=== PATIENT | male | born 1955 | race Caucasian/White ===

== ENCOUNTER 2022-03-26 15:37 | Inpatient (IN) | payer OTHER, MEDICAID ==
[~2022-03-26] VITALS: Ht 170.2 cm; Wt 66.2 kg
[2022-03-26 15:45] VITALS: BP_SYST 155
[2022-03-26] MEDS ORDERED: NACL 0.9% 1,000 ML IV ONE ×2 (15:45→18:00)
[2022-03-26] MEDS ORDERED: IPRATROPIUM/ALBUTEROL SULFATE 3 ML AMPUL.NEB (DUONEB) INH ONE (16:00)
[2022-03-26] MEDS ORDERED: methylPREDNISolone SOD SUCC/PF 62.5 MG/ML VIAL IVP ONE (16:00)
[2022-03-26] MEDS ORDERED: MAGNESIUM SULFATE 50 ML IV ONE (16:00)
[2022-03-26 16:28] LABS: BASOPHILS % (AUTO) 0.5 % (0.0-2.0); EOSINOPHILS % (AUTO) 0.1 % (0.0-4.0); HEMATOCRIT 30.5 % (36-54); LYMPHOCYTES # (AUTO) 0.9 K/uL (1.0-5.5); LYMPHOCYTES % (AUTO) 9.7 % (20.5-51.5); MEAN CORPUSCULAR HEMOGLOBIN 27 pg (27-31); MEAN CORPUSCULAR HGB CONC 33 % (32-36); MEAN CORPUSCULAR VOLUME 81 fL (79.0-98.0); MONOCYTES # (AUTO) 1.3 K/uL (0.0-1.0); MONOCYTES % (AUTO) 14.2 % (1.7-9.3); NEUTROPHILS # (AUTO) 7.1 K/uL (1.8-7.7); NEUTROPHILS % (AUTO) 75.5 % (40.0-70.0); PLATELET COUNT (AUTO) 308 K/uL (130-430); RED BLOOD CELL COUNT(AUTO) 3.77 MIL/uL (4.2-6.2); RED CELL DISTRIBUTION WIDTH 18.1 % (9.0-15.0); WHITE BLOOD COUNT (AUTO) 9.4 K/uL (4.8-10.8)
[2022-03-26 16:42] LABS: ALANINE AMINOTRANSFERASE 6 U/L (12-78); ALBUMIN 2.1 g/dL (3.4-4.8); ASPARTATE AMINOTRANSFERASE 19 U/L (10-37); CALCIUM 9.6 mg/dL (8.4-11.0); CREATININE 5.02 mg/dL (0.55-1.30); GLUCOSE 126 mg/dL (70-99); TOTAL BILIRUBIN 0.2 mg/dL (0.0-1.0); UREA NITROGEN, BLOOD 85 mg/dL (8-21)
[2022-03-26 16:45] LABS: GFR AFRICAN AMERICAN 15 mL/min (>90)
[2022-03-26 16:51] LABS: SODIUM SERUM 142 mmol/L (136-145)
[2022-03-26 16:52] LABS: ANION GAP 16 (5-15); CHLORIDE 108 mmol/L (98-107); POTASSIUM 3.9 mmol/L (3.5-5.1)
[2022-03-26] MEDS ORDERED: cefTRIAXone 1 GM VIAL IV ONE (18:00)
[2022-03-26] MEDS ORDERED: AZITHROMYCIN 500 MG in NS 250 ML IV ONE (18:00)
[2022-03-26 22:00] VITALS: BP_SYST 128; BP_SYST 164
[2022-03-26] MEDS ORDERED: LevALBUTEROL HCL 1.25 MG/0.5 ML *CONC.* VIAL.NEB (XOPENEX CONC.) INH PRN (22:15)
[2022-03-26 22:30] VITALS: BP_SYST 164
[2022-03-26 23:00] VITALS: BP_SYST 168
[2022-03-26 23:41] VITALS: BP_SYST 164
[2022-03-27] VITALS (21 sets, daily range): BP systolic 155–197
[2022-03-27] MEDS: LevALBUTEROL HCL 1.25 MG/0.5 ML *CONC.* VIAL.NEB (XOPENEX CONC.) INH SCH ×4 (00:01→22:50)
[2022-03-27] MEDS: D5/0.45 NS 1,000 ML IV SCH ×3 (00:09→23:13)
[2022-03-27] MEDS: [UNRECOGNIZED DRUG - OTHER] IV SCH ×3 (00:10→23:11)
[2022-03-27] MEDS ORDERED: hydrALAZINE HCL 20 MG/ML VIAL ONE (03:34)
[2022-03-27] MEDS: hydrALAZINE HCL 20 MG/ML VIAL IVP PRN ×3 (03:35→23:44)
[2022-03-27 06:36] LABS: BASOPHILS % (AUTO) 0.1 % (0.0-2.0); HEMATOCRIT 28.5 % (36-54); HEMOGLOBIN 9.4 g/dL (14.0-18.0); LYMPHOCYTES # (AUTO) 0.7 K/uL (1.0-5.5); LYMPHOCYTES % (AUTO) 6.5 % (20.5-51.5); MEAN CORPUSCULAR HEMOGLOBIN 27 pg (27-31); MEAN CORPUSCULAR HGB CONC 33 % (32-36); MEAN CORPUSCULAR VOLUME 81 fL (79.0-98.0); MONOCYTES # (AUTO) 1.1 K/uL (0.0-1.0); MONOCYTES % (AUTO) 10.5 % (1.7-9.3); NEUTROPHILS # (AUTO) 8.3 K/uL (1.8-7.7); NEUTROPHILS % (AUTO) 82.9 % (40.0-70.0); PLATELET COUNT (AUTO) 279 K/uL (130-430); RED BLOOD CELL COUNT(AUTO) 3.52 MIL/uL (4.2-6.2); RED CELL DISTRIBUTION WIDTH 17.9 % (9.0-15.0)
[2022-03-27 07:58] LABS: ALBUMIN 2.1 g/dL (3.4-4.8); CALCIUM 9.5 mg/dL (8.4-11.0); CREATININE 4.66 mg/dL (0.55-1.30); POTASSIUM 3.4 mmol/L (3.5-5.1); TOTAL BILIRUBIN 0.2 mg/dL (0.0-1.0)
[2022-03-27] MEDS: METOPROLOL TARTRATE 5 MG/5 ML AMPUL IVP PRN ×2 (12:07→20:43)
[2022-03-27] MEDS: PANTOPRAZOLE SODIUM 40 MG/VIAL (PROTONIX) IVP SCH (23:30)
[2022-03-27] MEDS ORDERED: PANTOPRAZOLE SODIUM 40 MG/VIAL (PROTONIX) IVP ONE (23:45)
[2022-03-28] VITALS (23 sets, daily range): BP systolic 138–177
[2022-03-28 06:27] LABS: BASOPHILS % (AUTO) 0.1 % (0.0-2.0); EOSINOPHILS % (AUTO) 0.3 % (0.0-4.0); HEMATOCRIT 27.7 % (36-54); HEMOGLOBIN 9.1 g/dL (14.0-18.0); MEAN CORPUSCULAR HEMOGLOBIN 27 pg (27-31); MEAN CORPUSCULAR HGB CONC 33 % (32-36); MEAN CORPUSCULAR VOLUME 81 fL (79.0-98.0); MONOCYTES # (AUTO) 1.3 K/uL (0.0-1.0); MONOCYTES % (AUTO) 10.5 % (1.7-9.3); NEUTROPHILS # (AUTO) 10.1 K/uL (1.8-7.7); NEUTROPHILS % (AUTO) 81.1 % (40.0-70.0); PLATELET COUNT (AUTO) 306 K/uL (130-430); RED BLOOD CELL COUNT(AUTO) 3.41 MIL/uL (4.2-6.2); RED CELL DISTRIBUTION WIDTH 17.9 % (9.0-15.0); WHITE BLOOD COUNT (AUTO) 12.5 K/uL (4.8-10.8)
[2022-03-28 06:42] LABS: ALBUMIN 1.8 g/dL (3.4-4.8); CALCIUM 8.7 mg/dL (8.4-11.0); CREATININE 4.41 mg/dL (0.55-1.30)
[2022-03-28] MEDS: LevALBUTEROL HCL 1.25 MG/0.5 ML *CONC.* VIAL.NEB (XOPENEX CONC.) INH SCH ×3 (07:39→23:51)
[2022-03-28 08:13] LABS: TOTAL BILIRUBIN 0.1 mg/dL (0.0-1.0)
[2022-03-28] MEDS: D5/0.45 NS 1,000 ML IV SCH ×2 (08:15→14:46)
[2022-03-28 08:26] LABS: POTASSIUM 2.9 mmol/L (3.5-5.1)
[2022-03-28] MEDS: PANTOPRAZOLE SODIUM 40 MG/VIAL (PROTONIX) IVP SCH (09:04)
[2022-03-28] MEDS: hydrALAZINE HCL 20 MG/ML VIAL IVP PRN ×3 (09:05→22:19)
[2022-03-28] MEDS ORDERED: POTASSIUM CHLORIDE IV ONE (10:00)
[2022-03-28] MEDS ORDERED: NS 0.45% IV ONE (10:00)
[2022-03-28] MEDS: [UNRECOGNIZED DRUG - OTHER] IV SCH ×2 (11:50→22:16)
[2022-03-28 11:55] LABS: PROTHROMBIN TIME 9.7 SECS (9.5-12.5)
[2022-03-28] MEDS ORDERED: ACETAMINOPHEN 325 MG TABLET PO PRN (12:15)
[2022-03-28] MEDS: METOPROLOL TARTRATE 50 MG TABLET PO SCH ×2 (12:57→22:17)
[2022-03-28] MEDS ORDERED: ACET325T53 PO (13:37)
[2022-03-28] MEDS ORDERED: HYDR-4038 PO (13:37)
[2022-03-28] MEDS ORDERED: TAMS-11 PO (13:37)
[2022-03-28] MEDS ORDERED: LIP40 PO (13:37)
[2022-03-28] MEDS ORDERED: CAT1PAT TD (13:37)
[2022-03-28] MEDS ORDERED: SUCR1TAB78 PO (13:37)
[2022-03-28] MEDS ORDERED: MOM PO (13:37)
[2022-03-28] MEDS ORDERED: NOR10 PO (13:37)
[2022-03-28] MEDS ORDERED: LEVE500T9 PO (13:37)
[2022-03-28] MEDS ORDERED: DOCU250C14 PO (13:37)
[2022-03-28] MEDS ORDERED: PANT40TA45 PO (13:37)
[2022-03-28] MEDS ORDERED: FLEPED RC (13:37)
[2022-03-28] MEDS ORDERED: DIVA500T4 PO (13:37)
[2022-03-28] MEDS ORDERED: BENZ2AMP PO (13:37)
[2022-03-28] MEDS ORDERED: BISA-79 PO (13:37)
[2022-03-28] MEDS ORDERED: SER100 PO ×2 (13:37)
[2022-03-28] MEDS ORDERED: METOPROLOL TARTRATE 25 MG TABLET PO SCH (21:00)
[2022-03-28] MEDS: hydrALAZINE HCL 25 MG TABLET PO SCH (22:15)
[2022-03-29] VITALS (12 sets, daily range): BP systolic 131–180
[2022-03-29] MEDS: METOPROLOL TARTRATE 5 MG/5 ML AMPUL IVP PRN (03:52)
[2022-03-29] MEDS: hydrALAZINE HCL 20 MG/ML VIAL IVP PRN (06:08)
[2022-03-29 06:12] LABS: BILIRUBIN,URINE NEGATIVE (NEGATIVE); BLOOD, URINE 3+ (NEGATIVE); COLOR,URINE YELLOW (YELLOW); GLUCOSE,URINE TRACE (NEGATIVE); KETONES,URINE NEGATIVE (NEGATIVE); LEUKOCYTE ESTERASE ,URINE NEGATIVE (NEGATIVE); NITRITE, URINE NEGATIVE (NEGATIVE); PROTEIN URINE 3+ (NEGATIVE); UROBILINOGEN,URINE 0.2 (0.2-1.0)
[2022-03-29 06:19] LABS: CLARITY/URINE CLOUDY (CLEAR)
[2022-03-29 06:45] LABS: BASOPHILS % (AUTO) 0.2 % (0.0-2.0); EOSINOPHILS # (AUTO) 0.1 K/uL (0.0-0.4); EOSINOPHILS % (AUTO) 0.5 % (0.0-4.0); HEMATOCRIT 27.1 % (36-54); HEMOGLOBIN 8.7 g/dL (14.0-18.0); LYMPHOCYTES # (AUTO) 1.3 K/uL (1.0-5.5); LYMPHOCYTES % (AUTO) 10.7 % (20.5-51.5); MEAN CORPUSCULAR HEMOGLOBIN 26 pg (27-31); MEAN CORPUSCULAR HGB CONC 32 % (32-36); MEAN CORPUSCULAR VOLUME 81 fL (79.0-98.0); MONOCYTES # (AUTO) 1.3 K/uL (0.0-1.0); MONOCYTES % (AUTO) 10.7 % (1.7-9.3); NEUTROPHILS # (AUTO) 9.3 K/uL (1.8-7.7); NEUTROPHILS % (AUTO) 77.9 % (40.0-70.0); PLATELET COUNT (AUTO) 324 K/uL (130-430); RED BLOOD CELL COUNT(AUTO) 3.34 MIL/uL (4.2-6.2); RED CELL DISTRIBUTION WIDTH 17.6 % (9.0-15.0)
[2022-03-29] MEDS: LevALBUTEROL HCL 1.25 MG/0.5 ML *CONC.* VIAL.NEB (XOPENEX CONC.) INH SCH ×2 (07:40→14:29)
[2022-03-29 08:08] LABS: ALBUMIN 1.8 g/dL (3.4-4.8); CALCIUM 8.7 mg/dL (8.4-11.0); CREATININE 4.07 mg/dL (0.55-1.30); TOTAL BILIRUBIN 0.2 mg/dL (0.0-1.0)
[2022-03-29] MEDS ORDERED: COMMUNICATION ORDER XX ONE (08:45)
[2022-03-29] MEDS: PANTOPRAZOLE SODIUM 40 MG/VIAL (PROTONIX) IVP SCH (09:08)
[2022-03-29] MEDS: hydrALAZINE HCL 25 MG TABLET PO SCH ×2 (09:09→21:45)
[2022-03-29] MEDS ORDERED: NS 0.45% IV ONE (09:30)
[2022-03-29] MEDS ORDERED: POTASSIUM CHLORIDE IV ONE (09:30)
[2022-03-29 10:02] LABS: BACTERIA,URINE FEW /HPF (None Seen); RBC,URINE 20-50 /HPF (0-3); WBC,URINE 0-3 /HPF (0-3)
[2022-03-29] MEDS: D5/0.45 NS 1,000 ML IV SCH (11:14)
[2022-03-29] MEDS: [UNRECOGNIZED DRUG - OTHER] IV SCH (11:15)
[2022-03-29] MEDS ORDERED: POTASSIUM CHLORIDE 20 MEQ/PKT PACKET PO ONE (16:00)
[2022-03-29] MEDS: D5W 1,000 ML IV SCH (16:32)
[2022-03-29] MEDS ORDERED: IPRATROPIUM/ALBUTEROL SULFATE 3 ML AMPUL.NEB (DUONEB) INH PRN (19:00)
[2022-03-29] MEDS: IPRATROPIUM/ALBUTEROL SULFATE 3 ML AMPUL.NEB (DUONEB) INH SCH (19:56)
[2022-03-29 21:25] LABS: CALCIUM 8.7 mg/dL (8.4-11.0); CREATININE 4.1 mg/dL (0.55-1.30); POTASSIUM 4.3 mmol/L (3.5-5.1)
[2022-03-29] MEDS: TAMSULOSIN HCL 0.4 MG CAP PO SCH (21:45)
[2022-03-29] MEDS: ATORVASTATIN 20 MG TABLET PO SCH (21:45)
[2022-03-29] MEDS: BISACODYL 5 MG TABLET.DR (DULCOLAX) PO SCH (21:45)
[2022-03-29] MEDS: METOPROLOL TARTRATE 50 MG TABLET PO SCH (21:45)
[2022-03-29] MEDS: LACTOBACILLUS RHAMNOSUS GG 1 CAP CAPSULE PO SCH (21:45)
[2022-03-29] MEDS: amLODIPine BESYLATE 10 MG TABLET PO SCH (21:45)
[2022-03-29] MEDS: PANTOPRAZOLE SODIUM 40 MG TAB PO SCH (21:45)
[2022-03-30] MEDS: DIVALPROEX SODIUM 500 MG TAB.SR.24H (DEPAKOTE ER) PO SCH ×3 (05:49→21:35)
[2022-03-30] MEDS: [UNRECOGNIZED DRUG - OTHER] IV SCH ×3 (06:04→22:35)
[2022-03-30] MEDS: D5W 1,000 ML IV SCH ×2 (06:19→20:00)
[2022-03-30] MEDS: LevALBUTEROL HCL 1.25 MG/0.5 ML *CONC.* VIAL.NEB (XOPENEX CONC.) INH SCH ×3 (07:00→23:00)
[2022-03-30] MEDS: IPRATROPIUM/ALBUTEROL SULFATE 3 ML AMPUL.NEB (DUONEB) INH SCH ×3 (07:41→20:05)
[2022-03-30 08:00] VITALS: BP_SYST 168
[2022-03-30] MEDS: PANTOPRAZOLE SODIUM 40 MG TAB PO SCH (08:58)
[2022-03-30] MEDS: amLODIPine BESYLATE 10 MG TABLET PO SCH (08:58)
[2022-03-30] MEDS: BISACODYL 5 MG TABLET.DR (DULCOLAX) PO SCH (08:58)
[2022-03-30] MEDS: LACTOBACILLUS RHAMNOSUS GG 1 CAP CAPSULE PO SCH ×2 (08:58→21:35)
[2022-03-30] MEDS: TAMSULOSIN HCL 0.4 MG CAP PO SCH (08:58)
[2022-03-30] MEDS: hydrALAZINE HCL 25 MG TABLET PO SCH ×2 (08:58→21:35)
[2022-03-30] MEDS: ATORVASTATIN 20 MG TABLET PO SCH (08:58)
[2022-03-30] MEDS: QUEtiapine FUMARATE 100 MG TABLET PO SCH ×2 (08:59→21:36)
[2022-03-30] MEDS: METOPROLOL TARTRATE 50 MG TABLET PO SCH ×2 (09:03→21:36)
[2022-03-30 09:26] LABS: BASOPHILS # (AUTO) 0.1 K/uL (0.0-0.2); BASOPHILS % (AUTO) 0.5 % (0.0-2.0); EOSINOPHILS # (AUTO) 0.4 K/uL (0.0-0.4); EOSINOPHILS % (AUTO) 3.5 % (0.0-4.0); HEMATOCRIT 26.5 % (36-54); HEMOGLOBIN 8.7 g/dL (14.0-18.0); LYMPHOCYTES # (AUTO) 1.7 K/uL (1.0-5.5); LYMPHOCYTES % (AUTO) 17.1 % (20.5-51.5); MEAN CORPUSCULAR HEMOGLOBIN 27 pg (27-31); MEAN CORPUSCULAR HGB CONC 33 % (32-36); MEAN CORPUSCULAR VOLUME 81 fL (79.0-98.0); MONOCYTES % (AUTO) 10.1 % (1.7-9.3); NEUTROPHILS % (AUTO) 68.8 % (40.0-70.0); PLATELET COUNT (AUTO) 313 K/uL (130-430); RED BLOOD CELL COUNT(AUTO) 3.26 MIL/uL (4.2-6.2); RED CELL DISTRIBUTION WIDTH 17.7 % (9.0-15.0); WHITE BLOOD COUNT (AUTO) 10.2 K/uL (4.8-10.8)
[2022-03-30 10:18] LABS: ALBUMIN 1.9 g/dL (3.4-4.8); CALCIUM 8.3 mg/dL (8.4-11.0); CREATININE 4.03 mg/dL (0.55-1.30); POTASSIUM 3.9 mmol/L (3.5-5.1); TOTAL BILIRUBIN 0.1 mg/dL (0.0-1.0)
[2022-03-30 12:00] VITALS: BP_SYST 140
[2022-03-30 16:30] VITALS: BP_SYST 132
[2022-03-30] MEDS: levETIRAcetam 500 MG TABLET PO SCH (21:35)
[2022-03-30 23:42] VITALS: BP_SYST 138
[2022-03-31 00:43] VITALS: BP_SYST 123
[2022-03-31] MEDS: IPRATROPIUM/ALBUTEROL SULFATE 3 ML AMPUL.NEB (DUONEB) INH SCH ×4 (01:39→19:54)
[2022-03-31 05:11] VITALS: BP_SYST 130
[2022-03-31] MEDS: D5W 1,000 ML IV SCH ×2 (05:13→12:14)
[2022-03-31] MEDS: LevALBUTEROL HCL 1.25 MG/0.5 ML *CONC.* VIAL.NEB (XOPENEX CONC.) INH SCH (07:00)
[2022-03-31 07:50] LABS: BASOPHILS # (AUTO) 0.1 K/uL (0.0-0.2); BASOPHILS % (AUTO) 0.8 % (0.0-2.0); EOSINOPHILS # (AUTO) 0.5 K/uL (0.0-0.4); EOSINOPHILS % (AUTO) 7.3 % (0.0-4.0); HEMATOCRIT 25.1 % (36-54); HEMOGLOBIN 8.1 g/dL (14.0-18.0); LYMPHOCYTES # (AUTO) 2.1 K/uL (1.0-5.5); LYMPHOCYTES % (AUTO) 28.5 % (20.5-51.5); MEAN CORPUSCULAR HEMOGLOBIN 26 pg (27-31); MEAN CORPUSCULAR HGB CONC 32 % (32-36); MEAN CORPUSCULAR VOLUME 82 fL (79.0-98.0); MONOCYTES # (AUTO) 0.7 K/uL (0.0-1.0); MONOCYTES % (AUTO) 8.9 % (1.7-9.3); NEUTROPHILS % (AUTO) 54.5 % (40.0-70.0); PLATELET COUNT (AUTO) 271 K/uL (130-430); RED BLOOD CELL COUNT(AUTO) 3.07 MIL/uL (4.2-6.2); RED CELL DISTRIBUTION WIDTH 17.4 % (9.0-15.0); WHITE BLOOD COUNT (AUTO) 7.3 K/uL (4.8-10.8)
[2022-03-31 07:51] LABS: ALBUMIN 1.5 g/dL (3.4-4.8); CALCIUM 8.5 mg/dL (8.4-11.0); CREATININE 4.44 mg/dL (0.55-1.30); POTASSIUM 3.3 mmol/L (3.5-5.1); TOTAL BILIRUBIN 0.1 mg/dL (0.0-1.0)
[2022-03-31 08:00] VITALS: BP_SYST 169
[2022-03-31] MEDS: PANTOPRAZOLE SODIUM 40 MG TAB PO SCH (09:02)
[2022-03-31] MEDS: ATORVASTATIN 20 MG TABLET PO SCH (09:03)
[2022-03-31] MEDS: QUEtiapine FUMARATE 100 MG TABLET PO SCH ×2 (09:03→21:57)
[2022-03-31] MEDS: hydrALAZINE HCL 25 MG TABLET PO SCH ×2 (09:04→21:58)
[2022-03-31] MEDS: amLODIPine BESYLATE 10 MG TABLET PO SCH (09:04)
[2022-03-31] MEDS: BISACODYL 5 MG TABLET.DR (DULCOLAX) PO SCH (09:05)
[2022-03-31] MEDS: TAMSULOSIN HCL 0.4 MG CAP PO SCH (09:05)
[2022-03-31] MEDS: LACTOBACILLUS RHAMNOSUS GG 1 CAP CAPSULE PO SCH ×2 (09:09→21:57)
[2022-03-31] MEDS: DIVALPROEX SODIUM 500 MG TAB.SR.24H (DEPAKOTE ER) PO SCH ×2 (09:21→21:57)
[2022-03-31] MEDS: METOPROLOL TARTRATE 50 MG TABLET PO SCH ×2 (09:22→21:58)
[2022-03-31 12:00] VITALS: BP_SYST 125
[2022-03-31] MEDS: [UNRECOGNIZED DRUG - OTHER] IV SCH (12:00)
[2022-03-31] MEDS ORDERED: PIPERACILLIN/TAZO 4.5GM/DEX-IS 100 ML IV SCH (13:05)
[2022-03-31] MEDS ORDERED: POTASSIUM CHLORIDE 20 MEQ/PKT PACKET PO ONE ×2 (14:00→15:05)
[2022-03-31 16:51] VITALS: BP_SYST 115
[2022-03-31 20:18] VITALS: BP_SYST 130
[2022-03-31] MEDS: levETIRAcetam 500 MG TABLET PO SCH (21:58)
[2022-03-31] MEDS: PIPERACILLIN/TAZO 4.5GM/DEX-IS 100 ML IV SCH (22:57)
[2022-04-01] VITALS (7 sets, daily range): BP systolic 111–128
[2022-04-01] MEDS: IPRATROPIUM/ALBUTEROL SULFATE 3 ML AMPUL.NEB (DUONEB) INH SCH ×4 (01:41→20:16)
[2022-04-01] MEDS: D5W 1,000 ML IV SCH ×2 (06:47→19:00)
[2022-04-01 08:34] LABS: BASOPHILS % (AUTO) 0.7 % (0.0-2.0); EOSINOPHILS # (AUTO) 0.4 K/uL (0.0-0.4); EOSINOPHILS % (AUTO) 6.2 % (0.0-4.0); LYMPHOCYTES # (AUTO) 2.1 K/uL (1.0-5.5); LYMPHOCYTES % (AUTO) 31.2 % (20.5-51.5); MEAN CORPUSCULAR HEMOGLOBIN 27 pg (27-31); MEAN CORPUSCULAR HGB CONC 33 % (32-36); MEAN CORPUSCULAR VOLUME 82 fL (79.0-98.0); MONOCYTES # (AUTO) 0.9 K/uL (0.0-1.0); NEUTROPHILS # (AUTO) 3.3 K/uL (1.8-7.7); NEUTROPHILS % (AUTO) 48.9 % (40.0-70.0); PLATELET COUNT (AUTO) 242 K/uL (130-430); RED BLOOD CELL COUNT(AUTO) 2.53 MIL/uL (4.2-6.2); RED CELL DISTRIBUTION WIDTH 17.5 % (9.0-15.0); WHITE BLOOD COUNT (AUTO) 6.7 K/uL (4.8-10.8)
[2022-04-01 09:10] LABS: ALBUMIN 1.4 g/dL (3.4-4.8); CREATININE 4.43 mg/dL (0.55-1.30)
[2022-04-01] MEDS: LACTOBACILLUS RHAMNOSUS GG 1 CAP CAPSULE PO SCH ×2 (09:22→20:31)
[2022-04-01] MEDS: BISACODYL 5 MG TABLET.DR (DULCOLAX) PO SCH (09:22)
[2022-04-01] MEDS: PANTOPRAZOLE SODIUM 40 MG TAB PO SCH (09:23)
[2022-04-01] MEDS: amLODIPine BESYLATE 10 MG TABLET PO SCH (09:23)
[2022-04-01] MEDS: ATORVASTATIN 20 MG TABLET PO SCH (09:23)
[2022-04-01] MEDS: QUEtiapine FUMARATE 100 MG TABLET PO SCH ×2 (09:23→20:30)
[2022-04-01] MEDS: DIVALPROEX SODIUM 500 MG TAB.SR.24H (DEPAKOTE ER) PO SCH ×2 (09:24→20:30)
[2022-04-01] MEDS: TAMSULOSIN HCL 0.4 MG CAP PO SCH (09:24)
[2022-04-01] MEDS: METOPROLOL TARTRATE 50 MG TABLET PO SCH ×2 (09:24→20:30)
[2022-04-01] MEDS: hydrALAZINE HCL 25 MG TABLET PO SCH ×2 (09:24→20:30)
[2022-04-01 09:28] LABS: HEMATOCRIT 20.6 % (36-54); HEMOGLOBIN 6.8 g/dL (14.0-18.0)
[2022-04-01 09:48] LABS: POTASSIUM 3.8 mmol/L (3.5-5.1); TOTAL BILIRUBIN 0.1 mg/dL (0.0-1.0)
[2022-04-01 10:30] LABS: HEMATOCRIT 22.1 % (36-54); HEMOGLOBIN 7.2 g/dL (14.0-18.0)
[2022-04-01] MEDS: PIPERACILLIN/TAZO 4.5GM/DEX-IS 100 ML IV SCH (10:46)
[2022-04-01] MEDS: levETIRAcetam 500 MG TABLET PO SCH (20:31)
[2022-04-02] MEDS: IPRATROPIUM/ALBUTEROL SULFATE 3 ML AMPUL.NEB (DUONEB) INH SCH (01:02)
[2022-04-02] MEDS ORDERED: EPOETIN ALFA-EPBX 4,000 UNITS/ML VIAL SUBCUT SCH (17:00)
== END 2022-04-02 00:15 | DRG 177 ==
LOC: SED 15:37 → SIC 18:36 → STU 03-29 13:55
PROVIDERS: ADMIT Family Medicine; ATTEND Family Medicine
PROC: 5A09357 Assistance with Respiratory Ventilation, Less than 24 Consecutive Hours, Continuous Positive Airway Pressure (ICD-10-PCS; principal; 2022-03-26)
DX: J69.0 Pneumonitis due to inhalation of food and vomit (principal); J96.01 Acute respiratory failure with hypoxia; N17.9 Acute kidney failure, unspecified; N18.4 Chronic kidney disease, stage 4 (severe); J44.1 Chronic obstructive pulmonary disease with (acute) exacerbation; Q61.3 Polycystic kidney, unspecified; I12.9 Hypertensive chronic kidney disease with stage 1 through stage 4 chronic kidney disease, or unspecified chronic kidney disease; E87.6 Hypokalemia; F03.90 Unspecified dementia, unspecified severity, without behavioral disturbance, psychotic disturbance, mood disturbance, and anxiety; I71.2 Thoracic aortic aneurysm, without rupture; K44.9 Diaphragmatic hernia without obstruction or gangrene; E86.0 Dehydration; F31.9 Bipolar disorder, unspecified; R13.10 Dysphagia, unspecified; Z20.822 Contact with and (suspected) exposure to COVID-19; Z87.891 Personal history of nicotine dependence; Z79.899 Other long term (current) drug therapy
CPT/HCPCS: 36415; 36600; 71045; 71250-TC; 76376; 76770; 78579; 78580-TC; 80048; 80053; 81000; 82803-TC; 83605; 83735; 83880; 84484; 85018; 85025; 85379; 85610-TC; 85730-TC; 87040; 87081; 92610-GN; 93005; 93970; 94640; 94660; 94760; 96361; 96365; 96367; 99291; A9539; A9540; C9113; G0378; J0360; J0456; J0696; J2543; J2930; J3475; J3480; J3490; J7050; J7612